=== PATIENT | female | born 1965 | race Caucasian/White ===

== ENCOUNTER 2016-08-09 11:45 | Emergency (ER) | payer OTHER ==
[2016-08-09 12:07] VITALS: BP 142/68; PULSE 65; RESP 18; O2SAT 97
[2016-08-09 12:37] LABS: COLOR YELLOW; LEUKOCYTE ESTERASE,URINE 2+ (NEGATIVE); NITRITE,URINE POSITIVE (NEGATIVE); PH,URINE 6.5 (5.0-7.5)
[2016-08-09 12:48] LABS: WBC,URINE >182 /hpf (0-3)
[2016-08-09 12:49] LABS: BACTERIA 2+ /hpf (NONE SEEN); MUCUS TRACE /lpf (NONE-1+)
--- NOTE | 2016-08-09 13:08 | UCPHY ---
H & P Time Seen by Provider: 08/09/16 12:55 Patient Type: Established HPI/ROS: This patient presents with a chief complaint dysuria, frequency and urgency which began 2 days ago. This morning she developed back pain and abdominal pain. The patient claims to have a concussion and intermittently feels nauseated for no good reason and she has experiences nausea today but she does not feel it is out of her normal pattern. There has been no vomiting. The patient denies fever. She localizes the pain in her back to the mid lower back worse on the left. Abdominal pain is located in the suprapubic area. Smoking Status: Never smoked Physical Exam: This is a well-developed well-nourished female who appears to feel unwell. She is currently afebrile. Back: There is minimal if any CVA tenderness on the left or the right. Patient localizes her pain inferior to the CVA area and this area is also nontender. Abdomen: There is diffuse lower abdominal tenderness without guarding or rebound. Constitutional: Initial Vital Signs Heart Rate 65 08/09/16 12:05 Respiratory Rate 18 08/09/16 12:05 Blood Pressure 142/68 H 08/09/16 12:05 O2 Sat (%) 97 08/09/16 12:05 O2 Delivery Mode Room Air Allergies/Adverse Reactions: amoxicillin Allergy (Verified 04/22/16 13:32) Home Medications: Medication Instructions Recorded Bcp 04/22/16 Divalproex Sodium 04/22/16 Escitalopram Oxalate 04/22/16 Irbesartan 04/22/16 Cephalexin [Keflex] 500 mg PO QID #28 cap 08/09/16 Phenazopyridine HCl [Pyridium] 200 mg PO TID PRN #9 tab 08/09/16 Medical Decision Making Differential Diagnosis: It is not clear if this patient has pyelonephritis or not but I used Keflex which should cover pyelonephritis. She claims to be allergic too much amoxicillin however she says that this caused some sores in her mouth the last time she took. Because the cross reactivity is quite low and also because of her limited symptoms I feel it is safe to use Keflex. - Data Points Laboratory Results: 08/09/16 12:35 Urine Color YELLOW Urine Appearance HAZY Urine pH 6.5 (5.0-7.5) Ur Specific [place] <= 1.005 (1.002-1.030) Urine Protein TRACE H (NEGATIVE) Urine Ketones NEGATIVE (NEGATIVE) Urine Blood 3+ H (NEGATIVE) Urine Nitrate POSITIVE H (NEGATIVE) Urine Bilirubin NEGATIVE (NEGATIVE) Urine Urobilinogen 0.2 EU EU (0.2-1.0) Ur Leukocyte Esterase 2+ H (NEGATIVE) Urine RBC 5-10 /hpf H /hpf (0-3) Urine WBC >182 /hpf H /hpf (0-3) Ur Epithelial Cells TRACE /lpf /lpf (NONE-1+) Urine Bacteria 2+ /hpf H /hpf (NONE SEEN) Urine Mucus TRACE /lpf /lpf (NONE-1+) Ur Culture Indicated? INDICATED H (NI) Urine Glucose NEGATIVE (NEGATIVE) Urine Comment Departure - Departure Disposition: Home, Routine, Self-Care Clinical Impression: Urinary tract infection Qualifiers: Urinary tract infection type: site unspecified Hematuria presence: without hematuria Qualified Code(s): N39.0 - Urinary tract infection, site not specified Condition: Good Instructions: Urinary Tract Infection in Women (ED) Additional Instructions: If your symptoms have not completely resolved in 48 hours you should be re- evaluated. Causes for concern would be fever, vomiting, increasing abdominal pain. Keep herself well hydrated but do not force herself to eat. Limit your activities while your feeling poorly. Adult Pain & Fever Control: We recommend Acetaminophen (Tylenol) and Ibuprofen (Motrin, Advil) for pain and fever control. When fever is high or pain severe, both drugs can be used at the same time, but at different intervals. Please note the time differences. Your dose is: Acetaminophen [650]mg every 4 to 6 hours ibuprofen [600]mg every [6] hours with food OR naproxen Sodium (Aleve) [440]mg every 12 hours. Note: do not take Acetaminophen with Hydrocodone (Vicodin, Lortab) or Oxycodone (Percocet). These medications also contain Acetaminophen. No more than 3000 mg of Acetaminophen should be taken in 24 hours (for an adult) . The maximal dose of ibuprofen that it is safe in a 24-hour period is 2400 mg. You may take 400 mg every 4 hours, 600 mg every 6 hours or 800 mg every 8 hours safely. Referrals: Huber Ramires MD [Primary Care Provider] - As per Instructions Prescriptions: Cephalexin [Keflex] 500 mg PO QID #28 cap Phenazopyridine HCl [Pyridium] 200 mg PO TID PRN #9 tab PRN Reason: URINARY TRACT INFECTION SYMPTO - PQRS PQRS Measurement: Not applicable
== END 2016-08-09 13:18 | disposition home or self-care (01) ==
LOC: CED 11:45
DX: N39.0 Urinary tract infection, site not specified (principal); B96.20 Unspecified Escherichia coli [E. coli] as the cause of diseases classified elsewhere
CPT/HCPCS: 81003-PO; 81015-PO; 99214-PO; G0463-PO

== ENCOUNTER → 2016-10-21 | Outpatient (CLI) | payer OTHER | LOC: CIMAGING 10:32 | PROVIDERS: ATTEND Obstetrics & Gynecology | DX: Z12.31 Encounter for screening mammogram for malignant neoplasm of breast (principal) | CPT/HCPCS: G0202 ==